=== PATIENT | female | born 1945 | race Caucasian/White ===

== ENCOUNTER 2019-03-16 06:25 | Day surgery (SDC) | payer OTHER ==
[2019-03-16] MEDS ORDERED: Lactated Ringers 1,000 ML IV SCH (07:00)
[2019-03-16] MEDS ORDERED: Midazolam 1 MG/ML 2 ML SDV ONE (08:07)
[2019-03-16] MEDS ORDERED: fentaNYL 100 MCG/2 ML SDV ONE (08:07)
[2019-03-16] MEDS ORDERED: Propofol 200 MG/20 ML SDV ONE (08:07)
--- NOTE | 2019-03-16 15:09 | OR ---
DATE OF SURGERY: 03/16/2019. REFERRING PROVIDER: Gabrielle Brooke DO. PRE-OPERATIVE DIAGNOSES: History of colon polyps. Last colonoscopy 10/2013, none prior to that, 2010. The patient does have chronic constipation since about 2013. POST-OPERATIVE DIAGNOSES: 1. 4 total polyps removed. a. 6 mm and 3 mm cecal polyps with the larger 1 being removed with hot snare and smaller 1 with cold forceps. b. 2 mm polyp at 55 cm, removed with cold forceps. c. 3 mm polyp at 20 cm, removed with cold forceps. 2. Mild hemorrhoids. 3. Mildly tortuous colon. PROCEDURE: Colonoscopy with polypectomy x4 (1 using hot snare and 3 using cold forceps). SURGEON: Anuj Murillo M.D. ANESTHESIA: Monitored anesthesia care. BOWEL PREP: Good. Alia is a 74-year-old female who was brought to the endoscopy suite after discussing risks and benefits of the procedure. Informed consent was obtained for conscious sedation and colonoscopy with or without biopsy and/or polypectomy. We also discussed possibility of missed lesions. Pre-procedure exam was unremarkable. IV, oxygen, and monitors were placed. The patient was placed in the left lateral decubitus position. Sedation was administered and a digital rectal exam performed and remarkable for some mild external hemorrhoidal skin tags. Colonoscope was passed into the rectum and slowly advanced all the way to the cecum. Cecum was viewed and photographed. There was a 6 mm and 3 mm polyps noted in the cecum with the larger being removed with hot snare and smaller removed with cold forceps. The colonoscope was slowly withdrawn and the mucosa was closed observed in a direct circumferential manner. The ascending colon was unremarkable. The transverse colon revealed 2 mm polyp at 55 cm, removed with cold forceps. The descending colon was unremarkable. The sigmoid colon revealed 3 mm polyp at 20 cm, removed with cold forceps. Retroflexion was performed and remarkable for some mild internal hemorrhoids, not acutely inflamed. Scope was removed. The patient tolerated the procedure well. The patient was monitored until that baseline status. Discharge instructions were reviewed and the patient was discharged in good condition. COMPLICATIONS: None. TOTAL TIME: 28 minutes. ESTIMATED BLOOD LOSS: About 1 mL. RECOMMENDATIONS/FOLLOW-UP: We will await results of path report to determine ideal followup interval. I would like to kindly thank Gabrielle Brooke for this referral. DMB: 03/16/2019 09:55:27 MODL: 03/16/2019 15:01:19 /[id number]
== END 2019-03-16 10:20 | disposition home or self-care (01) ==
LOC: VM.SDS 06:25
PROVIDERS: ATTEND Family Medicine
DX: D12.0 Benign neoplasm of cecum (principal); D12.3 Benign neoplasm of transverse colon; D12.5 Benign neoplasm of sigmoid colon; K64.8 Other hemorrhoids; K64.4 Residual hemorrhoidal skin tags; K59.09 Other constipation; K63.89 Other specified diseases of intestine; E55.9 Vitamin D deficiency, unspecified; M85.80 Other specified disorders of bone density and structure, unspecified site; N60.19 Diffuse cystic mastopathy of unspecified breast; Z86.010 Personal history of colon polyps; Z83.71 Family history of colonic polyps; Z79.899 Other long term (current) drug therapy
CPT/HCPCS: 45380; 45385; J2250; J2704; J3010; J7120; 45384

== ENCOUNTER 2023-02-04 07:04 | Day surgery (SDC) | payer MEDICARE, OTHER ==
[~2023-02-04 07:04] MED LIST: Lactated Ringers 1,000 ML IV SCH; Sodium Chloride 0.9% 10 ML Syringe FLUSH PRN
[2023-02-04] MEDS ORDERED: Propofol 200 MG/20 ML SDV ONE (08:03)
== END 2023-02-04 11:00 | disposition home or self-care (01) ==
LOC: VM.SDS 07:04
PROVIDERS: ATTEND Family Medicine
DX: Z12.11 Encounter for screening for malignant neoplasm of colon (principal); D12.2 Benign neoplasm of ascending colon; K59.09 Other constipation; K57.30 Diverticulosis of large intestine without perforation or abscess without bleeding; K64.9 Unspecified hemorrhoids; E55.9 Vitamin D deficiency, unspecified; F43.20 Adjustment disorder, unspecified; M85.80 Other specified disorders of bone density and structure, unspecified site; M16.12 Unilateral primary osteoarthritis, left hip; Z83.71 Family history of colonic polyps; Z90.710 Acquired absence of both cervix and uterus; Z96.642 Presence of left artificial hip joint; Z98.890 Other specified postprocedural states; Z79.899 Other long term (current) drug therapy
CPT/HCPCS: 00811; 88305; A4648; J2704; J7120

== ENCOUNTER 2024-11-09 06:56 | Day surgery (SDC) | payer MEDICARE, OTHER ==
[2024-11-09] MEDS: Lactated Ringers 1,000 ML IV SCH (07:15)
[2024-11-09] MEDS ORDERED: Propofol 200 MG/20 ML SDV ONE (07:53)
[2024-11-09] MEDS ORDERED: fentaNYL 100 MCG/2 ML SDV ONE (07:53)
[2024-11-09] MEDS ORDERED: Midazolam 1 MG/ML 2 ML SDV ONE (08:04)
== END 2024-11-09 10:25 | disposition home or self-care (01) ==
LOC: VM.SDS 06:56
PROVIDERS: ATTEND Family Medicine
DX: D12.6 Benign neoplasm of colon, unspecified (principal); K64.9 Unspecified hemorrhoids; K57.30 Diverticulosis of large intestine without perforation or abscess without bleeding; E78.00 Pure hypercholesterolemia, unspecified; Z86.0100 Personal history of colon polyps, unspecified; Z79.899 Other long term (current) drug therapy; K59.09 Other constipation
CPT/HCPCS: 00811; 88305; 99100; J2250; J2704; J3010; J7120